=== PATIENT | female | born 1995 | race Caucasian/White ===

== ENCOUNTER 2021-05-05 16:47 | Outpatient (CLI) | payer OTHER ==
[~2021-05-05] VITALS: Ht 152.4 cm; Wt 71.8 kg
--- NOTE | 2021-05-05 16:30 | NUR ---
Pt sent over from [facility] after elevated BP in office. Orders per Dr. Melo for serial BP, CBC, CMP, and UA. Pt arrives on unit ambulatory. Changed into a clean gown. EFM and toco applied. VSS. Pt denies regular ctx, LOF, vaginal bleeding, and reports GFM. 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 Denies increase of swelling. Admission assessment completed. Pt udpdated on POC. Bed locked in low position. Call light within reach. No questions or concerns at this time.
[2021-05-05 16:40] VITALS: BP 132/86; PULSE 90; TEMP 98.4
[2021-05-05 16:55] VITALS: BP 130/85; PULSE 85
[2021-05-05 16:56] LABS: COLLECTION METHOD CLEAN CATCH
[2021-05-05 16:58] LABS: BASO % 0.4 % (0.0-2.0); EOS # 0.1 (0.0-0.7); EOS % 1.3 % (0-4.0); GRAN # 5.5 (1.4-6.5); GRAN % 71.6 % (42.2-75.2); HEMATOCRIT 36.5 % (37.0-47.0); HEMOGLOBIN 12.5 g/dl (12.5-16.0); LYMPH # 1.4 (1.2-3.4); LYMPH % 17.7 % (20.0-51.0); MEAN CELL VOLUME 92 fl (80.0-100.0); MEAN CORPUSCULAR HEMOGLOBIN 31 pg (27.0-31.0); MEAN CORPUSCULAR HGB CONC 34 g/dl (33.0-37.0); MONO # 0.6 (0.1-0.6); MONO % 8.1 % (1.7-9.3); PLATELET COUNT 197 K/mm3 (130-400); RED BLOOD COUNT 3.98 M/mm3 (4.10-5.30); REDCELL DISTRIBUTION WIDTH-CV 12.3 % (11.5-14.5)
[2021-05-05 17:04] LABS: MUCOUS Present /lpf; PH 7 (5-8); URINE APPEARANCE Cloudy; URINE BACTERIA Many /hpf; URINE BILIRUBIN Negative (NEGATIVE); URINE BLOOD Negative (NEGATIVE); URINE COLOR Yellow; URINE GLUCOSE Negative (NEGATIVE); URINE KETONE Negative (NEGATIVE); URINE LEUKOCYTE ESTERASE 3+ (NEGATIVE); URINE NITRATE Negative (NEGATIVE); URINE PROTEIN(semi-quant) Negative (NEGATIVE); URINE UROBILINOGEN Negative (NEGATIVE)
[2021-05-05 17:08] LABS: ALBUMIN 3.5 gm/dL (3.5-5.0); BILIRUBIN,TOTAL 0.4 mg/dL (0.0-1.0); CALCIUM 9.1 mg/dL (8.4-10.2); CREATININE, serum 0.52 (0.52-1.25); POTASSIUM 3.9 mmol/L (3.4-5.0); TOTAL PROTEIN 6.8 gm/dL (6.4-8.2)
[2021-05-05 17:10] VITALS: BP 128/82; PULSE 94
== END 2021-05-05 17:25 | disposition home or self-care (01) ==
LOC: LDRO 16:47 → LDR 16:48 → LDRO 17:25
PROVIDERS: Student in an Organized Health Care Education/Training Program
DX: O13.9 Gestational [pregnancy-induced] hypertension without significant proteinuria, unspecified trimester (principal); Z3A.00 Weeks of gestation of pregnancy not specified
CPT/HCPCS: OP

== ENCOUNTER → 2021-05-13 | Outpatient (CLI) | payer OTHER ==
[~2021-05-13] MED LIST: MOTRIN 600600 MG/TAB PO; NATURAL IRON65 MG; PERCOCET 325 MG1 TA2 PO; PRENATAL; VITAMIN B-625 MG
== END ==
LOC: ZCOL.LAB 10:27
DX: Z20.822 Contact with and (suspected) exposure to COVID-19 (principal)

== ENCOUNTER 2021-05-15 06:16 | Inpatient (IN) | payer OTHER ==
[2021-05-15] VITALS (44 sets, daily range): BP systolic 103–149; BP diastolic 57–89; PULSE 73–125; TEMP 98.2–98.7
[~2021-05-15] VITALS: Ht 152.4 cm; Wt 71.4 kg
--- NOTE | 2021-05-15 06:20 | NUR ---
Patient arrives ambulatory with FOB for scheduled induction. Patient reports occasional mild contractions, denies ROM or vaginal bleeding and reports normal movement. Physician notified and induction verified as for PIH diagnosis. Patient denies headache, visual changes, or RUQ pain. Reviewed plan of care for induction with patient, patient agrees and denies questions. Changes into gown, EFM explained and placed. VS obtained. 0645- IV started in LFA, labs obtained and sent. LR infusing per protocol. Assessment completed. Consents explained and signed. Patient denies questions. 0705- Pitocin administration reviewed with patient. Patient agrees to plan of care and denies questions. Pitocin started at 2 mU per protocol and order. Physician will be in shortly to assess patient.
[2021-05-15] MEDS ORDERED: PRENATAL (06:51)
[2021-05-15] MEDS ORDERED: NATURAL IRON65 MG (06:52)
[2021-05-15] MEDS ORDERED: VITAMIN B-625 MG (06:52)
[2021-05-15 07:26] LABS: BASO % 0.5 % (0.0-2.0); EOS # 0.2 (0.0-0.7); EOS % 1.9 % (0-4.0); GRAN # 5.8 (1.4-6.5); GRAN % 68.1 % (42.2-75.2); HEMOGLOBIN 12.6 g/dl (12.5-16.0); LYMPH # 1.7 (1.2-3.4); LYMPH % 19.8 % (20.0-51.0); MEAN CELL VOLUME 93 fl (80.0-100.0); MEAN CORPUSCULAR HEMOGLOBIN 32 pg (27.0-31.0); MEAN CORPUSCULAR HGB CONC 34 g/dl (33.0-37.0); MEAN PLATELET VOLUME 10.4 fl (7.4-10.4); MONO # 0.7 (0.1-0.6); MONO % 8.5 % (1.7-9.3); PLATELET COUNT 185 K/mm3 (130-400); RED BLOOD COUNT 3.99 M/mm3 (4.10-5.30); REDCELL DISTRIBUTION WIDTH-CV 12.1 % (11.5-14.5)
[2021-05-15 08:00] LABS: ALBUMIN 3.2 gm/dL (3.5-5.0); BILIRUBIN,TOTAL 0.4 mg/dL (0.0-1.0); CALCIUM 8.9 mg/dL (8.4-10.2); CREATININE, serum 0.53 (0.52-1.25); POTASSIUM 3.4 mmol/L (3.4-5.0); TOTAL PROTEIN 6.4 gm/dL (6.4-8.2)
--- NOTE | 2021-05-15 08:00 | NUR ---
Dr. Humphreys at bedside. Vertex presentation confirmed via bedside ultrasound per provider. 0805- SVE per provider /. Plan of care to continue Pitocin induction and progress labor prior to AROM. Patient denies questions.
--- NOTE | 2021-05-15 12:40 | NUR ---
Patient moving frequently with contractions. Maternal heart rate intermittently tracing due to patient leaning over bed. RN at bedside adjusting monitors and palpating contractions.
--- NOTE | 2021-05-15 14:15 | NUR ---
Patient requesting SVE. Physician updated.
--- NOTE | 2021-05-15 15:52 | NUR ---
1552- Patient reports increased pressure. SVE 10/+2. notified and requested at bedside for delivery. RN remains at bedside. 1605- Dr. Humphreys at bedside. Nursery RN to bedside and patient assisted to footplates after mcfarland catheter removal. Periprep completed. 1608- Patient begins pushing with contractions. 1616- of viable female attended by Dr. Humphreys. to mother's abdomen, care of infant to Gabriela Mccullough RN. Agpars . 1619- Spontaneous delivery of placenta. Pitocin bolus started at 333 ml/hr/protocol. Fundal massage by RN, firm and one below umbilicus. No sutures needed per provider. Pericare given and ice pack applied. Gaetano updated on plan of care and safety.
--- NOTE | 2021-05-15 19:30 | NUR ---
PT ASSISTED TO EDGE OF LABOR BED, REPORTS FEELING HAS RETURNED TO BILATERAL LOWER EXTREMITIES, EPIDURAL CATHETER REMOVED FROM BACK AT THIS TIME. VITAL SIGNS STABLE, PT AMBULATORY WITH STRONG STEADY GAIT TO RESTROOM. LOCHIA WNL, VOIDS 500CC OF CLEAR URINE AT THIS TIME. WILBUR AREA CLEANSED. PAD CHANGED, ICE PACK APPLIED TO PERINEUM, AND PT ASSISTED INTO CLEAN UNDERWEAR AND OUTFIT. TRANSFERRED TO ROOM 214 AT THIS TIME VIA WHEELCHAIR.
[2021-05-16 04:00] VITALS: BP 126/74; PULSE 74; TEMP 97.9
[2021-05-16 07:40] VITALS: BP 118/66; PULSE 82; TEMP 97.9
[2021-05-16] MEDS ORDERED: PERCOCET 325 MG1 TA2 PO (09:43)
[2021-05-16] MEDS ORDERED: MOTRIN 600600 MG/TAB PO (09:43)
--- NOTE | 2021-05-16 12:41 | NUR ---
Initial visit; Patient thanked [employer] Specialist for offering congratulations for the of her daughter. [employer] Specialist thanked patient for choosing [facility].
[2021-05-16 13:00] VITALS: BP 120/75; PULSE 80; TEMP 98
[2021-05-16 15:00] VITALS: BP 124/83; PULSE 87; TEMP 97.9
--- NOTE | 2021-05-16 15:00 | NUR ---
Rests in bed, alert. Request pain medication. 1510 Percocet 5/325 mg one given per request and as ordered.
--- NOTE | 2021-05-16 18:55 | NUR ---
1845- DISCHARGE INSTRUCTIONS REVIEWED WITH PT AND SPOUSE, QUESTIONS ENCOURAGED AND ANSWERED, UNDERSTANDING VERBALIZED. INSTRUCTED TO RETURN WITH TOMORROW PRIOR TO NOON FOR REPEAT BILIRUBIN. UNDERSTANDING VEBALIZED. 1855- BUCKLED IN INFANT CARRIER. PT, SPOUSE AND OFF UNIT AMBULATORY FOR HOME.
== END 2021-05-16 18:55 | disposition home or self-care (01) | DRG 806 ==
LOC: LDR 06:16 → OB 06:16
PROVIDERS: ADMIT Obstetrics & Gynecology
PROC: 10E0XZZ Delivery of Products of Conception, External Approach (ICD-10-PCS; principal; 2021-05-15)
PROC: 10907ZC Drainage of Amniotic Fluid, Therapeutic from Products of Conception, Via Natural or Artificial Opening (ICD-10-PCS; 2021-05-15)
PROC: 3E033VJ Introduction of Other Hormone into Peripheral Vein, Percutaneous Approach (ICD-10-PCS; 2021-05-15)
DX: O13.4 Gestational [pregnancy-induced] hypertension without significant proteinuria, complicating childbirth (principal); O99.354 Diseases of the nervous system complicating childbirth; Z37.0 Single live birth; O71.89 Other specified obstetric trauma; O99.02 Anemia complicating childbirth; D64.9 Anemia, unspecified; G43.909 Migraine, unspecified, not intractable, without status migrainosus; O34.83 Maternal care for other abnormalities of pelvic organs, third trimester; N83.202 Unspecified ovarian cyst, left side; Z3A.38 38 weeks gestation of pregnancy
CPT/HCPCS: J2590; J7120